=== PATIENT | male | born 1945 | race Caucasian/White ===

== ENCOUNTER 2022-03-05 15:45 | Inpatient (IN) | payer OTHER ==
[~2022-03-05] VITALS: Ht 165.1 cm; Wt 64.9 kg
[~2022-03-05 15:45] MED LIST: DEXTROSE 50% WATER 50ML SYRINGE IV ONE; EPINEPHRINE 0.1MG/ML (1:10,000) 10ML SYR ONE; ETOMIDATE 2MG/ML 10ML VIAL IV ONE; SODIUM CHLORIDE 0.9% 10ML VIAL ONE; SUCCINYLCHOLINE CHLORIDE 200MG/10ML IV ONE; VECURONIUM BROMIDE 10 MG/VIAL IV ONE
[2022-03-05] MEDS ORDERED: NITROGLYCERIN 50MG PREMIX 250 ML IV PRN ×2 (16:00→16:30)
[2022-03-05] MEDS ORDERED: CEFTRIAXONE 1 G PREMIX 50 ML IV ONE (16:15)
[2022-03-05] MEDS ORDERED: VANCOMYCIN 1G PREMIX 200 ML IV ONE (16:15)
[2022-03-05 16:31] LABS: BASOPHILS % 0.2 % (0.0-2.0); HEMATOCRIT. 45.8 % (42.0-52.0); HEMOGLOBIN. 14.3 g/dL (14.0-18.0); MEAN CORPUSCULAR HEMOGLOBIN 31.9 pg (28.0-32.0); MEAN PLATELET VOLUME 8.5 fl (7.4-10.4); MONOCYTES % 10.3 % (2.0-8.0); NEUTROPHILS % 77.5 % (40.0-76.0); PLATELET 193 x1000/uL (130-400); RED BLOOD CELL COUNT 4.49 mill/uL (4.7-6.1); RED CELL DISTRIBUTION WIDTH 16.1 % (11.6-14.6)
[2022-03-05 16:42] LABS: ETHANOL BLOOD < 10 mg/dL
[2022-03-05 16:49] LABS: CHLORIDE 104 mEq/L (98-107)
[2022-03-05] MEDS ORDERED: PROPOFOL 10MG/ML 100ML 100 ML IV ONE (17:00)
[2022-03-05] MEDS: PROPOFOL 10MG/ML 100ML 100 ML IV NR ×2 (17:09→19:27)
[2022-03-05] MEDS ORDERED: FENTANYL 2500MCG/250ML PMX 250 ML IV PRN (17:30)
[2022-03-05 18:13] LABS: BG BASE EXCESS 12.3 mmol/L (-2.0-2.0); BG CARBOXYHEMOGLOBIN 0.4 % (0.5-1.5); BG DEOXYHEMOGLOBIN 3.3 % (0.0-5.0); BG FRACTION INSPIRED OXYGEN 100; BG HCO3 ACT 38.6 mmol/L (22.0-26.0); BG METHEMOGLOBIN 0.2 % (0.0-1.5); BG OXYGEN SATURATION 96.7 % (92.0-98.5); BG OXYHEMOGLOBIN 96.1 % (94.0-97.0); BG PCO2 57.3 mmHg (35.0-45.0); BG PH 7.446 (7.350-7.450); BG PO2 76.4 mmHg (75.0-100.0); BG SAMPLE SITE RIGHT RADIAL; BG VENT MODE VENT - AC
[2022-03-05] MEDS ORDERED: GUAIFENESIN 200MG/10ML SUGAR FREE UDC PO PRN (18:15)
[2022-03-05] MEDS ORDERED: HYDROCODONE/ACETAMINOPHEN 5/325MG TABLET PO PRN (18:15)
[2022-03-05] MEDS ORDERED: CLONIDINE 0.1MG TABLET PO PRN (18:15)
[2022-03-05] MEDS ORDERED: ONDANSETRON HCL 4MG/2ML INJ IV PRN (18:15)
[2022-03-05] MEDS ORDERED: MAGNESIUM/ALUMINUM HYDROXIDE/SIMETHICONE 30ML UDC PO PRN (18:15)
[2022-03-05] MEDS ORDERED: ACETAMINOPHEN 650MG/20.3ML UDC GT PRN (18:15)
[2022-03-05] MEDS ORDERED: MIDAZOLAM 100MG/100ML PMX 100 ML IV PRN (18:30)
[2022-03-05] MEDS ORDERED: NOREPINEPHRINE 8MG/250ML PMX 250 ML IV NR ×2 (18:45→23:00)
[2022-03-05] MEDS ORDERED: NOREPINEPHRINE 8MG/250ML PMX 250 ML IV ONE (18:45)
[2022-03-05] MEDS ORDERED: ENOXAPARIN 40MG/0.4ML SYR SUBCUT SCH (19:00)
[2022-03-05] MEDS: ACETAMINOPHEN 650MG/20.3ML UDC GT PRN (23:45)
[2022-03-06] VITALS (49 sets, daily range): BP systolic 67–178; BP diastolic 45–118
[2022-03-06] MEDS: AZITHROMYCIN 500 MG in DEXT 5% WATER 250 ML IV SCH (01:58)
[2022-03-06 05:10] LABS: BASOPHILS % 0.5 % (0.0-2.0); EOSINOPHILS % 0.1 % (0.0-5.0); HEMATOCRIT. 38.9 % (42.0-52.0); HEMOGLOBIN. 12.5 g/dL (14.0-18.0); LYMPHOCYTES % 31.7 % (20.0-50.0); MEAN CORPUSCULAR HEMOGLOBIN 31.7 pg (28.0-32.0); MEAN CORPUSCULAR VOLUME 98.3 fL (80.0-94.0); MONOCYTES % 4.9 % (2.0-8.0); NEUTROPHILS % 62.8 % (40.0-76.0); PLATELET 179 x1000/uL (130-400); RED BLOOD CELL COUNT 3.95 mill/uL (4.7-6.1); RED CELL DISTRIBUTION WIDTH 15.1 % (11.6-14.6)
[2022-03-06 05:20] LABS: CHLORIDE 104 mEq/L (98-107)
[2022-03-06 05:48] LABS: PHOSPHORUS 0.5 mg/dL (2.5-4.9)
[2022-03-06 06:15] LABS: VITAMIN B12 SERUM > 2000.0 pg/mL (211-911)
[2022-03-06] MEDS: VANCOMYCIN 1GM PMX (XELLIA) 200 ML IV SCH ×2 (06:32→20:51)
[2022-03-06] MEDS: ACETAMINOPHEN 650MG/20.3ML UDC GT PRN (06:48)
[2022-03-06] MEDS ORDERED: MAGNESIUM 2 G PREMIX 50 ML IV NR (09:00)
[2022-03-06 09:38] LABS: BG BASE EXCESS 5.5 mmol/L (-2.0-2.0); BG CARBOXYHEMOGLOBIN 0.3 % (0.5-1.5); BG DEOXYHEMOGLOBIN 2.8 % (0.0-5.0); BG FRACTION INSPIRED OXYGEN 100; BG HCO3 ACT 30.6 mmol/L (22.0-26.0); BG METHEMOGLOBIN 0.3 % (0.0-1.5); BG OXYGEN SATURATION 97.2 % (92.0-98.5); BG OXYHEMOGLOBIN 96.6 % (94.0-97.0); BG PCO2 46.5 mmHg (35.0-45.0); BG PH 7.436 (7.350-7.450); BG PO2 87.3 mmHg (75.0-100.0); BG SAMPLE SITE LEFT RADIAL; BG TOTAL HEMOGLOBIN 13.3 g/dL (12.0-18.0); BG VENT MODE VENT - AC
[2022-03-06] MEDS ORDERED: POTASSIUM PHOS,M-BASIC-D-BASIC 30 MMOL in SODIUM CHLORIDE 0.9% 500 ML IV NR (10:00)
[2022-03-06] MEDS: FUROSEMIDE 20MG/2ML VIAL IVP SCH (12:00)
[2022-03-06] MEDS ORDERED: AMIODARONE HCL 900 MG in DEXT 5% WATER 482 ML IV PRN (12:00)
[2022-03-06] MEDS ORDERED: AMIODARONE HCL 150 MG in DEXT 5% WATER 100 ML IV SCH (12:00)
[2022-03-06] MEDS ORDERED: PHENYLEPHRINE 50 MG in DEXT 5% WATER 245 ML IV PRN (12:00)
[2022-03-06] MEDS ORDERED: IPRATROPIUM/ALBUTEROL 0.5-3(2.5)MG/3ML NEB HHN PRN (12:15)
[2022-03-06] MEDS: MIDODRINE HCL 5MG TABLET PO SCH ×2 (13:00→17:00)
[2022-03-06] MEDS ORDERED: NOREPINEPHRINE 32 MG in DEXT 5% WATER 218 ML IV PRN (15:15)
[2022-03-06] MEDS: ACETYLCYSTEINE 100MG/ML 10% VIAL 4ML INH SCH (16:03)
[2022-03-06] MEDS: IPRATROPIUM/ALBUTEROL 0.5-3(2.5)MG/3ML NEB HHN SCH ×2 (16:03→20:46)
[2022-03-06] MEDS: CEFTRIAXONE 1,000 MG in DEXTROSE 5% WATER 50 ML IV SCH (17:00)
[2022-03-06] MEDS: ENOXAPARIN 60MG/0.6ML SYR SUBCUT SCH (18:00)
[2022-03-06 19:16] LABS: CREATINE KINASE 62 IU/L (39-308)
[2022-03-06] MEDS: DEXT 5%/0.45% NACL 1000ML 1,000 ML IV SCH (20:50)
[2022-03-06 21:16] LABS: INR 1.5; PARTIAL THROMBOPLASTIN TIME 54.1 sec (23.4-31.0); PROTHROMBIN TIME 15.4 sec (9.6-11.0)
[2022-03-06] MEDS: PHENYLEPHRINE 100 MG in DEXT 5% WATER 240 ML IV PRN (22:24)
[2022-03-06] MEDS: PROPOFOL 10MG/ML 100ML 100 ML IV PRN (22:30)
[2022-03-06] MEDS: NOREPINEPHRINE 32 MG in DEXT 5% WATER 218 ML IV PRN (22:31)
[2022-03-06] MEDS ORDERED: DEXTROSE 50% WATER 50ML SYRINGE IV PRN (23:00)
[2022-03-07] VITALS (90 sets, daily range): BP systolic 81–153; BP diastolic 52–94
[2022-03-07] MEDS: IPRATROPIUM/ALBUTEROL 0.5-3(2.5)MG/3ML NEB HHN SCH ×6 (00:56→19:54)
[2022-03-07] MEDS: ACETYLCYSTEINE 100MG/ML 10% VIAL 4ML INH SCH ×3 (00:56→16:07)
[2022-03-07] MEDS: AZITHROMYCIN 500 MG in DEXT 5% WATER 250 ML IV SCH (03:13)
[2022-03-07 05:56] LABS: BASOPHILS % 0.3 % (0.0-2.0); EOSINOPHILS % 0.2 % (0.0-5.0); HEMOGLOBIN. 12.7 g/dL (14.0-18.0); LYMPHOCYTES % 7.7 % (20.0-50.0); MEAN CORPUSCULAR HEMOGLOBIN 32.5 pg (28.0-32.0); MEAN CORPUSCULAR VOLUME 97.6 fL (80.0-94.0); MEAN PLATELET VOLUME 8.3 fl (7.4-10.4); MONOCYTES % 2.9 % (2.0-8.0); NEUTROPHILS % 88.9 % (40.0-76.0); PLATELET 163 x1000/uL (130-400); RED CELL DISTRIBUTION WIDTH 15.6 % (11.6-14.6)
[2022-03-07] MEDS: INSULIN LISPRO 100 UNITS/ML SUBCUT SCH ×4 (06:00→18:00)
[2022-03-07] MEDS: ENOXAPARIN 60MG/0.6ML SYR SUBCUT SCH ×3 (06:00→19:04)
[2022-03-07] MEDS: BLOOD SUGAR DIAGNOSTIC STRIP TEST SCH ×4 (06:21→18:00)
[2022-03-07] MEDS: VANCOMYCIN 1GM PMX (XELLIA) 200 ML IV SCH (06:21)
[2022-03-07 08:57] LABS: BG BASE EXCESS 0.8 mmol/L (-2.0-2.0); BG CARBOXYHEMOGLOBIN 0.3 % (0.5-1.5); BG DEOXYHEMOGLOBIN 1.3 % (0.0-5.0); BG FRACTION INSPIRED OXYGEN 70; BG HCO3 ACT 27.1 mmol/L (22.0-26.0); BG METHEMOGLOBIN 0.2 % (0.0-1.5); BG OXYGEN SATURATION 98.7 % (92.0-98.5); BG OXYHEMOGLOBIN 98.2 % (94.0-97.0); BG PCO2 50.5 mmHg (35.0-45.0); BG PH 7.348 (7.350-7.450); BG PO2 140.8 mmHg (75.0-100.0); BG SAMPLE SITE RIGHT RADIAL; BG TOTAL HEMOGLOBIN 13.2 g/dL (12.0-18.0); BG VENT MODE VENT - AC
[2022-03-07] MEDS: MIDODRINE HCL 5MG TABLET PO SCH ×3 (09:59→17:00)
[2022-03-07] MEDS: FUROSEMIDE 20MG/2ML VIAL IVP SCH (09:59)
[2022-03-07] MEDS ORDERED: SODIUM BICARBONATE 4% (2.4MEQ) 5ML VIAL IV ONE (11:02)
[2022-03-07] MEDS: DEXT 5%/0.45% NACL 1000ML 1,000 ML IV SCH (11:48)
[2022-03-07] MEDS: PROPOFOL 10MG/ML 100ML 100 ML IV PRN (11:49)
[2022-03-07] MEDS: PHENYLEPHRINE 100 MG in DEXT 5% WATER 240 ML IV PRN (12:38)
[2022-03-07] MEDS: NOREPINEPHRINE 32 MG in DEXT 5% WATER 218 ML IV PRN (13:14)
[2022-03-07] MEDS: CEFTRIAXONE 1,000 MG in DEXTROSE 5% WATER 50 ML IV SCH (18:53)
[2022-03-07] MEDS: VANCOMYCIN 750MG PREMIX 150 ML IV SCH (19:25)
[2022-03-07] MEDS: FENTANYL 2500MCG/250ML PMX 250 ML IV PRN (20:42)
[2022-03-08] VITALS (72 sets, daily range): BP systolic 93–145; BP diastolic 51–93
[2022-03-08] MEDS: ACETYLCYSTEINE 100MG/ML 10% VIAL 4ML INH SCH ×3 (00:02→16:44)
[2022-03-08] MEDS: IPRATROPIUM/ALBUTEROL 0.5-3(2.5)MG/3ML NEB HHN SCH ×6 (00:02→20:34)
[2022-03-08] MEDS: PROPOFOL 10MG/ML 100ML 100 ML IV PRN ×3 (01:58→23:30)
[2022-03-08] MEDS: AZITHROMYCIN 500 MG in DEXT 5% WATER 250 ML IV SCH (02:00)
[2022-03-08 05:47] LABS: BASOPHILS % 0.1 % (0.0-2.0); EOSINOPHILS % 0.9 % (0.0-5.0); HEMATOCRIT. 33.8 % (42.0-52.0); HEMOGLOBIN. 11.1 g/dL (14.0-18.0); LYMPHOCYTES % 8.7 % (20.0-50.0); MEAN CORPUSCULAR HEMOGLOBIN 31.7 pg (28.0-32.0); MEAN CORPUSCULAR VOLUME 96.2 fL (80.0-94.0); MEAN PLATELET VOLUME 8.4 fl (7.4-10.4); MONOCYTES % 3.4 % (2.0-8.0); NEUTROPHILS % 86.9 % (40.0-76.0); PLATELET 144 x1000/uL (130-400); RED BLOOD CELL COUNT 3.51 mill/uL (4.7-6.1); RED CELL DISTRIBUTION WIDTH 15.4 % (11.6-14.6)
[2022-03-08 05:58] LABS: CHLORIDE 102 mEq/L (98-107)
[2022-03-08] MEDS: INSULIN LISPRO 100 UNITS/ML SUBCUT SCH ×4 (06:00→17:30)
[2022-03-08 06:03] LABS: PHOSPHORUS 2.6 mg/dL (2.5-4.9)
[2022-03-08] MEDS: VANCOMYCIN 750MG PREMIX 150 ML IV SCH ×2 (06:36→17:30)
[2022-03-08] MEDS: DEXT 5%/0.45% NACL 1000ML 1,000 ML IV SCH (06:37)
[2022-03-08] MEDS: BLOOD SUGAR DIAGNOSTIC STRIP TEST SCH ×4 (06:37→17:30)
[2022-03-08] MEDS: ENOXAPARIN 60MG/0.6ML SYR SUBCUT SCH ×2 (06:37→17:36)
[2022-03-08] MEDS: PHENYLEPHRINE 100 MG in DEXT 5% WATER 240 ML IV PRN ×2 (07:55→17:36)
[2022-03-08] MEDS: FUROSEMIDE 20MG/2ML VIAL IVP SCH (08:54)
[2022-03-08] MEDS: MIDODRINE HCL 5MG TABLET PO SCH ×3 (08:58→17:29)
[2022-03-08 09:46] LABS: BG CARBOXYHEMOGLOBIN 0.3 % (0.5-1.5); BG DEOXYHEMOGLOBIN 1.2 % (0.0-5.0); BG FRACTION INSPIRED OXYGEN 40; BG METHEMOGLOBIN 0.1 % (0.0-1.5); BG OXYGEN SATURATION 98.8 % (92.0-98.5); BG OXYHEMOGLOBIN 98.4 % (94.0-97.0); BG PCO2 34.4 mmHg (35.0-45.0); BG PH 7.496 (7.350-7.450); BG PO2 141.2 mmHg (75.0-100.0); BG SAMPLE SITE RIGHT RADIAL; BG TOTAL HEMOGLOBIN 11.8 g/dL (12.0-18.0); BG VENT MODE VENT - AC
[2022-03-08] MEDS: CEFTRIAXONE 1,000 MG in DEXTROSE 5% WATER 50 ML IV SCH (16:41)
[2022-03-08] MEDS: FENTANYL 2500MCG/250ML PMX 250 ML IV PRN (20:14)
[2022-03-09] VITALS (107 sets, daily range): BP systolic 80–169; BP diastolic 37–101
[2022-03-09] MEDS: ACETYLCYSTEINE 100MG/ML 10% VIAL 4ML INH SCH ×4 (00:29→23:32)
[2022-03-09] MEDS: IPRATROPIUM/ALBUTEROL 0.5-3(2.5)MG/3ML NEB HHN SCH ×7 (00:29→23:32)
[2022-03-09] MEDS: PHENYLEPHRINE 100 MG in DEXT 5% WATER 240 ML IV PRN (01:20)
[2022-03-09] MEDS: AZITHROMYCIN 500 MG in DEXT 5% WATER 250 ML IV SCH (02:57)
[2022-03-09] MEDS: DEXT 5%/0.45% NACL 1000ML 1,000 ML IV SCH (03:29)
[2022-03-09 04:08] LABS: CHLORIDE 102 mEq/L (98-107)
[2022-03-09] MEDS: INSULIN LISPRO 100 UNITS/ML SUBCUT SCH ×4 (06:00→17:25)
[2022-03-09] MEDS: VANCOMYCIN 750MG PREMIX 150 ML IV SCH ×2 (06:53→17:26)
[2022-03-09] MEDS: BLOOD SUGAR DIAGNOSTIC STRIP TEST SCH ×4 (06:55→17:02)
[2022-03-09] MEDS: ENOXAPARIN 60MG/0.6ML SYR SUBCUT SCH ×2 (06:55→17:03)
[2022-03-09 08:15] LABS: BG BASE EXCESS 1.2 mmol/L (-2.0-2.0); BG CARBOXYHEMOGLOBIN 0.3 % (0.5-1.5); BG DEOXYHEMOGLOBIN 1.5 % (0.0-5.0); BG FRACTION INSPIRED OXYGEN 40; BG HCO3 ACT 25.1 mmol/L (22.0-26.0); BG METHEMOGLOBIN 0.3 % (0.0-1.5); BG OXYGEN SATURATION 98.5 % (92.0-98.5); BG OXYHEMOGLOBIN 97.9 % (94.0-97.0); BG PH 7.449 (7.350-7.450); BG PO2 131.7 mmHg (75.0-100.0); BG SAMPLE SITE RIGHT RADIAL; BG TOTAL HEMOGLOBIN 10.7 g/dL (12.0-18.0); BG VENT MODE VENT - AC
[2022-03-09] MEDS: MIDODRINE HCL 5MG TABLET PO SCH ×3 (08:51→17:02)
[2022-03-09] MEDS: FUROSEMIDE 20MG/2ML VIAL IVP SCH (08:52)
[2022-03-09] MEDS ORDERED: POTASSIUM CHLORIDE INJ 40 MEQ in DEXT 5% WATER 500 ML IV ONE (09:00)
[2022-03-09] MEDS ORDERED: NALOXONE HCL 0.4MG/ML VIAL IV PRN (12:45)
[2022-03-09] MEDS: PROPOFOL 10MG/ML 100ML 100 ML IV PRN (14:08)
[2022-03-09] MEDS: CEFTRIAXONE 1,000 MG in DEXTROSE 5% WATER 50 ML IV SCH (17:01)
[2022-03-09] MEDS: FENTANYL 2500MCG/250ML PMX 250 ML IV PRN (19:01)
[2022-03-10] VITALS (92 sets, daily range): BP systolic 40–158; BP diastolic 20–94
[2022-03-10] MEDS: DEXT 5%/0.45% NACL 1000ML 1,000 ML IV SCH ×2 (00:42→20:24)
[2022-03-10] MEDS: BLOOD SUGAR DIAGNOSTIC STRIP TEST SCH ×4 (00:42→17:04)
[2022-03-10] MEDS: PROPOFOL 10MG/ML 100ML 100 ML IV PRN ×2 (00:48→13:21)
[2022-03-10] MEDS: AZITHROMYCIN 500 MG in DEXT 5% WATER 250 ML IV SCH (02:33)
[2022-03-10] MEDS: IPRATROPIUM/ALBUTEROL 0.5-3(2.5)MG/3ML NEB HHN SCH ×5 (03:33→20:25)
[2022-03-10 05:47] LABS: BASOPHILS % 0.2 % (0.0-2.0); EOSINOPHILS % 0.9 % (0.0-5.0); HEMOGLOBIN. 10.7 g/dL (14.0-18.0); LYMPHOCYTES % 15.1 % (20.0-50.0); MEAN CORPUSCULAR HEMOGLOBIN 32.2 pg (28.0-32.0); MEAN CORPUSCULAR VOLUME 96.2 fL (80.0-94.0); MONOCYTES % 9.9 % (2.0-8.0); NEUTROPHILS % 73.9 % (40.0-76.0); PLATELET 123 x1000/uL (130-400); RED BLOOD CELL COUNT 3.32 mill/uL (4.7-6.1); RED CELL DISTRIBUTION WIDTH 15.4 % (11.6-14.6)
[2022-03-10 05:57] LABS: CHLORIDE 103 mEq/L (98-107)
[2022-03-10] MEDS: INSULIN LISPRO 100 UNITS/ML SUBCUT SCH ×4 (06:00→17:05)
[2022-03-10 06:02] LABS: PHOSPHORUS 3.3 mg/dL (2.5-4.9)
[2022-03-10] MEDS: ACETYLCYSTEINE 100MG/ML 10% VIAL 4ML INH SCH ×2 (07:59→16:16)
[2022-03-10 09:22] LABS: BG BASE EXCESS 2.1 mmol/L (-2.0-2.0); BG CARBOXYHEMOGLOBIN 0.2 % (0.5-1.5); BG DEOXYHEMOGLOBIN 1.5 % (0.0-5.0); BG FRACTION INSPIRED OXYGEN 40; BG HCO3 ACT 24.9 mmol/L (22.0-26.0); BG METHEMOGLOBIN 0.3 % (0.0-1.5); BG OXYGEN SATURATION 98.5 % (92.0-98.5); BG PCO2 32.7 mmHg (35.0-45.0); BG PO2 134.3 mmHg (75.0-100.0); BG SAMPLE SITE RIGHT RADIAL; BG TOTAL HEMOGLOBIN 11.2 g/dL (12.0-18.0); BG VENT MODE VENT - AC
[2022-03-10] MEDS: VANCOMYCIN 750MG PREMIX 150 ML IV SCH (09:31)
[2022-03-10] MEDS: ENOXAPARIN 60MG/0.6ML SYR SUBCUT SCH ×2 (09:33→17:05)
[2022-03-10] MEDS: MIDODRINE HCL 5MG TABLET PO SCH ×3 (09:53→16:59)
[2022-03-10] MEDS: FUROSEMIDE 20MG/2ML VIAL IVP SCH (09:53)
[2022-03-10] MEDS: NOREPINEPHRINE 32 MG in DEXT 5% WATER 218 ML IV PRN (09:55)
[2022-03-10] MEDS: PHENYLEPHRINE 100 MG in DEXT 5% WATER 240 ML IV PRN (09:55)
[2022-03-10] MEDS: CEFTRIAXONE 1,000 MG in DEXTROSE 5% WATER 50 ML IV SCH (16:58)
[2022-03-10] MEDS: FENTANYL 2500MCG/250ML PMX 250 ML IV PRN (21:34)
[2022-03-11] VITALS (100 sets, daily range): BP systolic 85–174; BP diastolic 48–128
[2022-03-11] MEDS: IPRATROPIUM/ALBUTEROL 0.5-3(2.5)MG/3ML NEB HHN SCH ×6 (00:23→21:06)
[2022-03-11] MEDS: ACETYLCYSTEINE 100MG/ML 10% VIAL 4ML INH SCH ×3 (00:24→21:39)
[2022-03-11] MEDS: PROPOFOL 10MG/ML 100ML 100 ML IV PRN ×3 (01:38→21:01)
[2022-03-11 05:33] LABS: CHLORIDE 104 mEq/L (98-107)
[2022-03-11] MEDS: BLOOD SUGAR DIAGNOSTIC STRIP TEST SCH ×5 (06:00→23:36)
[2022-03-11] MEDS: INSULIN LISPRO 100 UNITS/ML SUBCUT SCH ×5 (06:00→23:36)
[2022-03-11 09:03] LABS: BG BASE EXCESS 4.2 mmol/L (-2.0-2.0); BG CARBOXYHEMOGLOBIN 0.3 % (0.5-1.5); BG DEOXYHEMOGLOBIN 2.7 % (0.0-5.0); BG FRACTION INSPIRED OXYGEN 35; BG METHEMOGLOBIN 0.2 % (0.0-1.5); BG OXYGEN SATURATION 97.3 % (92.0-98.5); BG OXYHEMOGLOBIN 96.8 % (94.0-97.0); BG PCO2 44.3 mmHg (35.0-45.0); BG PH 7.434 (7.350-7.450); BG PO2 96.5 mmHg (75.0-100.0); BG SAMPLE SITE RIGHT RADIAL; BG VENT MODE VENT - AC
[2022-03-11 09:05] LABS: BASOPHILS % 0.2 % (0.0-2.0); EOSINOPHILS % 0.8 % (0.0-5.0); HEMOGLOBIN. 10.5 g/dL (14.0-18.0); MEAN CORPUSCULAR HEMOGLOBIN 31.7 pg (28.0-32.0); MEAN CORPUSCULAR VOLUME 96.7 fL (80.0-94.0); MEAN PLATELET VOLUME 8.6 fl (7.4-10.4); MONOCYTES % 6.3 % (2.0-8.0); NEUTROPHILS % 83.7 % (40.0-76.0); RED CELL DISTRIBUTION WIDTH 15.4 % (11.6-14.6)
[2022-03-11] MEDS: FUROSEMIDE 20MG/2ML VIAL IVP SCH (09:16)
[2022-03-11] MEDS: MIDODRINE HCL 5MG TABLET PO SCH ×3 (09:16→17:19)
[2022-03-11] MEDS: ENOXAPARIN 60MG/0.6ML SYR SUBCUT SCH ×2 (09:17→17:19)
[2022-03-11 09:55] LABS: PLATELET 183 x1000/uL (130-400)
[2022-03-11] MEDS: PHENYLEPHRINE 100 MG in DEXT 5% WATER 240 ML IV PRN (10:41)
[2022-03-11] MEDS ORDERED: AMIODARONE HCL 50MG/ML 3ML VIAL IV ONE (13:30)
[2022-03-11] MEDS ORDERED: CEFTRIAXONE 1 G PREMIX 50 ML IV SCH (13:30)
[2022-03-11] MEDS: DEXT 5%/0.45% NACL 1000ML 1,000 ML IV SCH (14:44)
[2022-03-11] MEDS ORDERED: AMIODARONE HCL 150 MG in DEXT 5% WATER 100 ML IV NR (15:00)
[2022-03-11] MEDS ORDERED: NALOXONE HCL 0.4MG/ML VIAL IV PRN (16:15)
[2022-03-11] MEDS ORDERED: CEFTRIAXONE 1,000 MG in DEXTROSE 5% WATER 50 ML IV SCH (17:00)
[2022-03-11] MEDS: AMIODARONE HCL 200 MG TABLET PO SCH (20:13)
[2022-03-12] VITALS (95 sets, daily range): BP systolic 85–173; BP diastolic 47–98
[2022-03-12] MEDS: IPRATROPIUM/ALBUTEROL 0.5-3(2.5)MG/3ML NEB HHN SCH ×6 (00:26→20:10)
[2022-03-12] MEDS: ENOXAPARIN 60MG/0.6ML SYR SUBCUT SCH ×2 (05:30→17:58)
[2022-03-12] MEDS: LACTULOSE 20G/30ML UDC PO PRN (05:30)
[2022-03-12] MEDS: BLOOD SUGAR DIAGNOSTIC STRIP TEST SCH ×3 (05:30→17:40)
[2022-03-12] MEDS: INSULIN LISPRO 100 UNITS/ML SUBCUT SCH ×3 (05:30→17:40)
[2022-03-12] MEDS: PROPOFOL 10MG/ML 100ML 100 ML IV PRN ×2 (05:33→15:10)
[2022-03-12 05:50] LABS: BASOPHILS % 0.4 % (0.0-2.0); EOSINOPHILS % 1.1 % (0.0-5.0); HEMATOCRIT. 29.8 % (42.0-52.0); HEMOGLOBIN. 9.9 g/dL (14.0-18.0); LYMPHOCYTES % 18.2 % (20.0-50.0); MEAN CORPUSCULAR HEMOGLOBIN 32.1 pg (28.0-32.0); MEAN PLATELET VOLUME 8.5 fl (7.4-10.4); MONOCYTES % 6.6 % (2.0-8.0); NEUTROPHILS % 73.7 % (40.0-76.0); PLATELET 228 x1000/uL (130-400); RED BLOOD CELL COUNT 3.07 mill/uL (4.7-6.1); RED CELL DISTRIBUTION WIDTH 15.1 % (11.6-14.6)
[2022-03-12 06:14] LABS: CHLORIDE 105 mEq/L (98-107)
[2022-03-12 06:21] LABS: PHOSPHORUS 2.6 mg/dL (2.5-4.9)
[2022-03-12] MEDS: FUROSEMIDE 20MG/2ML VIAL IVP SCH (09:00)
[2022-03-12 09:31] LABS: BG CARBOXYHEMOGLOBIN 0.1 % (0.5-1.5); BG DEOXYHEMOGLOBIN 1.9 % (0.0-5.0); BG FRACTION INSPIRED OXYGEN 35; BG HCO3 ACT 27.8 mmol/L (22.0-26.0); BG METHEMOGLOBIN 0.2 % (0.0-1.5); BG OXYGEN SATURATION 98.1 % (92.0-98.5); BG OXYHEMOGLOBIN 97.8 % (94.0-97.0); BG PCO2 38.5 mmHg (35.0-45.0); BG PH 7.476 (7.350-7.450); BG PO2 110.9 mmHg (75.0-100.0); BG SAMPLE SITE RIGHT RADIAL; BG TOTAL HEMOGLOBIN 10.7 g/dL (12.0-18.0); BG VENT MODE VENT - AC
[2022-03-12] MEDS: AMIODARONE HCL 200 MG TABLET PO SCH ×2 (09:35→21:00)
[2022-03-12] MEDS: MIDODRINE HCL 5MG TABLET PO SCH ×3 (09:35→17:57)
[2022-03-12] MEDS: DEXT 5%/0.45% NACL 1000ML 1,000 ML IV SCH (11:15)
[2022-03-12] MEDS ORDERED: POTASSIUM CHLORIDE INJ 40 MEQ in DEXT 5% WATER 250 ML IV ONE (11:30)
[2022-03-12] MEDS: KCL 20MEQ/100ML X 2 FOR TOTAL KCL 40MEQ/200ML IV SCH ×2 (12:24→15:09)
[2022-03-12] MEDS ORDERED: CEFTRIAXONE 1 G PREMIX 50 ML IV SCH (17:45)
[2022-03-12] MEDS: CEFTRIAXONE 1,000 MG in DEXTROSE 5% WATER 50 ML IV SCH (19:49)
[2022-03-13] VITALS (95 sets, daily range): BP systolic 76–182; BP diastolic 32–110
[2022-03-13] MEDS: IPRATROPIUM/ALBUTEROL 0.5-3(2.5)MG/3ML NEB HHN SCH ×6 (00:10→20:53)
[2022-03-13] MEDS: BLOOD SUGAR DIAGNOSTIC STRIP TEST SCH ×4 (00:46→17:52)
[2022-03-13] MEDS ORDERED: FENTANYL 2500MCG/250ML PMX 250 ML IV PRN (01:00)
[2022-03-13] MEDS: LACTULOSE 20G/30ML UDC PO PRN (02:44)
[2022-03-13] MEDS: PROPOFOL 10MG/ML 100ML 100 ML IV PRN ×2 (02:46→18:01)
[2022-03-13 05:45] LABS: BASOPHILS % 0.2 % (0.0-2.0); EOSINOPHILS % 0.6 % (0.0-5.0); HEMATOCRIT. 30.5 % (42.0-52.0); HEMOGLOBIN. 10.1 g/dL (14.0-18.0); LYMPHOCYTES % 10.8 % (20.0-50.0); MEAN CORPUSCULAR HEMOGLOBIN 32.4 pg (28.0-32.0); MEAN CORPUSCULAR VOLUME 98.1 fL (80.0-94.0); MEAN PLATELET VOLUME 8.5 fl (7.4-10.4); MONOCYTES % 4.2 % (2.0-8.0); NEUTROPHILS % 84.2 % (40.0-76.0); PLATELET 296 x1000/uL (130-400); RED BLOOD CELL COUNT 3.11 mill/uL (4.7-6.1); RED CELL DISTRIBUTION WIDTH 15.2 % (11.6-14.6)
[2022-03-13 05:50] LABS: CHLORIDE 107 mEq/L (98-107)
[2022-03-13] MEDS: INSULIN LISPRO 100 UNITS/ML SUBCUT SCH ×4 (06:00→17:52)
[2022-03-13] MEDS: ENOXAPARIN 60MG/0.6ML SYR SUBCUT SCH ×2 (06:22→18:01)
[2022-03-13] MEDS: DEXT 5%/0.45% NACL 1000ML 1,000 ML IV SCH (06:23)
[2022-03-13 08:56] LABS: BG BASE EXCESS 5.4 mmol/L (-2.0-2.0); BG CARBOXYHEMOGLOBIN 0.3 % (0.5-1.5); BG DEOXYHEMOGLOBIN 3.8 % (0.0-5.0); BG FRACTION INSPIRED OXYGEN 30; BG HCO3 ACT 32.9 mmol/L (22.0-26.0); BG METHEMOGLOBIN 0.2 % (0.0-1.5); BG OXYGEN SATURATION 96.2 % (92.0-98.5); BG OXYHEMOGLOBIN 95.7 % (94.0-97.0); BG PCO2 64.2 mmHg (35.0-45.0); BG PH 7.327 (7.350-7.450); BG PO2 96.4 mmHg (75.0-100.0); BG TOTAL HEMOGLOBIN 10.6 g/dL (12.0-18.0); BG VENT MODE VENT - SIMV
[2022-03-13] MEDS ORDERED: POTASSIUM CHLORIDE INJ 40 MEQ in DEXT 5% WATER 250 ML IV ONE (09:00)
[2022-03-13 09:12] LABS: BG SAMPLE SITE RIGHT RADIAL
[2022-03-13] MEDS: MIDODRINE HCL 5MG TABLET PO SCH ×3 (09:24→17:58)
[2022-03-13] MEDS: FUROSEMIDE 20MG/2ML VIAL IVP SCH (09:24)
[2022-03-13] MEDS: AMIODARONE HCL 200 MG TABLET PO SCH ×2 (09:24→21:00)
[2022-03-13] MEDS: KCL 20MEQ/100ML PREMIX 100 ML IV SCH ×2 (09:30→12:00)
[2022-03-13 14:30] LABS: BG CARBOXYHEMOGLOBIN 0.3 % (0.5-1.5); BG DEOXYHEMOGLOBIN 2.7 % (0.0-5.0); BG FRACTION INSPIRED OXYGEN 30; BG HCO3 ACT 30.8 mmol/L (22.0-26.0); BG METHEMOGLOBIN 0.1 % (0.0-1.5); BG OXYGEN SATURATION 97.3 % (92.0-98.5); BG OXYHEMOGLOBIN 96.9 % (94.0-97.0); BG PCO2 45.6 mmHg (35.0-45.0); BG PH 7.448 (7.350-7.450); BG PO2 95.6 mmHg (75.0-100.0); BG SAMPLE SITE RIGHT RADIAL; BG TOTAL HEMOGLOBIN 12.1 g/dL (12.0-18.0); BG VENT MODE VENT - CPAP
[2022-03-13] MEDS ORDERED: PROPOFOL 10MG/ML 100ML 100 ML IV PRN (18:00)
[2022-03-13] MEDS: CEFTRIAXONE 1,000 MG in DEXTROSE 5% WATER 50 ML IV SCH (18:02)
[2022-03-14] VITALS (50 sets, daily range): BP systolic 103–156; BP diastolic 52–93
[2022-03-14] MEDS: IPRATROPIUM/ALBUTEROL 0.5-3(2.5)MG/3ML NEB HHN SCH ×7 (00:47→20:03)
[2022-03-14] MEDS: PROPOFOL 10MG/ML 100ML 100 ML IV PRN (01:12)
[2022-03-14] MEDS: DEXT 5%/0.45% NACL 1000ML 1,000 ML IV SCH ×2 (02:44→23:18)
[2022-03-14] MEDS: INSULIN LISPRO 100 UNITS/ML SUBCUT SCH ×5 (06:00→23:14)
[2022-03-14] MEDS: ENOXAPARIN 60MG/0.6ML SYR SUBCUT SCH ×2 (06:00→18:16)
[2022-03-14] MEDS: BLOOD SUGAR DIAGNOSTIC STRIP TEST SCH ×5 (06:00→23:14)
[2022-03-14 06:11] LABS: BASOPHILS % 0.5 % (0.0-2.0); EOSINOPHILS % 1.6 % (0.0-5.0); HEMATOCRIT. 32.2 % (42.0-52.0); HEMOGLOBIN. 10.8 g/dL (14.0-18.0); LYMPHOCYTES % 25.3 % (20.0-50.0); MEAN CORPUSCULAR HEMOGLOBIN 32.5 pg (28.0-32.0); MEAN CORPUSCULAR VOLUME 96.7 fL (80.0-94.0); MEAN PLATELET VOLUME 7.9 fl (7.4-10.4); MONOCYTES % 7.8 % (2.0-8.0); NEUTROPHILS % 64.8 % (40.0-76.0); PLATELET 404 x1000/uL (130-400); RED BLOOD CELL COUNT 3.33 mill/uL (4.7-6.1); RED CELL DISTRIBUTION WIDTH 14.8 % (11.6-14.6)
[2022-03-14 06:26] LABS: CHLORIDE 106 mEq/L (98-107)
[2022-03-14 08:50] LABS: BG BASE EXCESS 5.1 mmol/L (-2.0-2.0); BG CARBOXYHEMOGLOBIN 0.3 % (0.5-1.5); BG DEOXYHEMOGLOBIN 2.7 % (0.0-5.0); BG FRACTION INSPIRED OXYGEN 30; BG HCO3 ACT 29.8 mmol/L (22.0-26.0); BG METHEMOGLOBIN 0.2 % (0.0-1.5); BG OXYGEN SATURATION 97.3 % (92.0-98.5); BG OXYHEMOGLOBIN 96.8 % (94.0-97.0); BG PCO2 44.8 mmHg (35.0-45.0); BG PH 7.441 (7.350-7.450); BG PO2 97.9 mmHg (75.0-100.0); BG SAMPLE SITE LEFT RADIAL; BG TOTAL HEMOGLOBIN 10.8 g/dL (12.0-18.0); BG VENT MODE VENT - AC
[2022-03-14] MEDS: MIDODRINE HCL 5MG TABLET PO SCH ×3 (09:46→17:57)
[2022-03-14] MEDS: FUROSEMIDE 20MG/2ML VIAL IVP SCH (09:47)
[2022-03-14] MEDS: AMIODARONE HCL 200 MG TABLET PO SCH ×2 (09:47→20:01)
[2022-03-14] MEDS ORDERED: SORBITOL 70% SOLN 30ML PO NR (11:15)
[2022-03-14 11:57] LABS: BG BASE EXCESS 6.6 mmol/L (-2.0-2.0); BG CARBOXYHEMOGLOBIN 0.3 % (0.5-1.5); BG FRACTION INSPIRED OXYGEN 30; BG HCO3 ACT 32.6 mmol/L (22.0-26.0); BG METHEMOGLOBIN 0.2 % (0.0-1.5); BG OXYHEMOGLOBIN 95.5 % (94.0-97.0); BG PCO2 53.2 mmHg (35.0-45.0); BG PH 7.405 (7.350-7.450); BG PO2 87.3 mmHg (75.0-100.0); BG SAMPLE SITE RIGHT RADIAL; BG TOTAL HEMOGLOBIN 12.2 g/dL (12.0-18.0); BG VENT MODE VENT - CPAP
[2022-03-14] MEDS: MORPHINE SULFATE 2 MG/ML CPJ (NOT FOR IM USE) IV PRN ×2 (14:41→20:00)
[2022-03-14] MEDS: LACTULOSE 20G/30ML UDC PO PRN (19:58)
[2022-03-14] MEDS: CEFTRIAXONE 1,000 MG in DEXTROSE 5% WATER 50 ML IV SCH (19:58)
[2022-03-14] MEDS: PHENYLEPHRINE 100 MG in DEXT 5% WATER 240 ML IV PRN (21:45)
[2022-03-15] VITALS (88 sets, daily range): BP systolic 81–168; BP diastolic 45–102
[2022-03-15] MEDS: IPRATROPIUM/ALBUTEROL 0.5-3(2.5)MG/3ML NEB HHN SCH ×5 (01:38→16:40)
[2022-03-15] MEDS: BLOOD SUGAR DIAGNOSTIC STRIP TEST SCH ×2 (05:42→12:37)
[2022-03-15] MEDS: INSULIN LISPRO 100 UNITS/ML SUBCUT SCH ×2 (05:51→12:00)
[2022-03-15] MEDS: ENOXAPARIN 60MG/0.6ML SYR SUBCUT SCH ×2 (05:52→18:58)
[2022-03-15 06:31] LABS: BASOPHILS % 0.5 % (0.0-2.0); EOSINOPHILS % 0.2 % (0.0-5.0); HEMATOCRIT. 31.4 % (42.0-52.0); HEMOGLOBIN. 10.4 g/dL (14.0-18.0); LYMPHOCYTES % 12.7 % (20.0-50.0); MEAN CORPUSCULAR HEMOGLOBIN 31.7 pg (28.0-32.0); MEAN CORPUSCULAR VOLUME 95.9 fL (80.0-94.0); MONOCYTES % 6.1 % (2.0-8.0); NEUTROPHILS % 80.5 % (40.0-76.0); PLATELET 432 x1000/uL (130-400); RED BLOOD CELL COUNT 3.27 mill/uL (4.7-6.1); RED CELL DISTRIBUTION WIDTH 14.4 % (11.6-14.6)
[2022-03-15 06:44] LABS: CHLORIDE 107 mEq/L (98-107)
[2022-03-15 06:51] LABS: PHOSPHORUS 2.5 mg/dL (2.5-4.9)
[2022-03-15] MEDS ORDERED: FENTANYL 2500MCG/250ML PMX 250 ML IV PRN (08:04)
[2022-03-15] MEDS: HYDRALAZINE 20MG/ML VIAL IV PRN (08:05)
[2022-03-15] MEDS: MORPHINE SULFATE 2 MG/ML CPJ (NOT FOR IM USE) IV PRN (08:15)
[2022-03-15] MEDS: AMIODARONE HCL 200 MG TABLET PO SCH ×2 (08:28→20:10)
[2022-03-15] MEDS: FUROSEMIDE 20MG/2ML VIAL IVP SCH (08:28)
[2022-03-15] MEDS: MIDODRINE HCL 5MG TABLET PO SCH ×3 (08:29→16:56)
[2022-03-15] MEDS ORDERED: POTASSIUM CHLORIDE INJ 40 MEQ in DEXT 5% WATER 250 ML IV ONE (10:45)
[2022-03-15] MEDS: KCL 20MEQ/100ML X 2 FOR TOTAL KCL 40MEQ/200ML IV SCH ×2 (12:23→13:55)
[2022-03-15] MEDS: DEXT 5%/0.45% NACL 1000ML 1,000 ML IV SCH (20:09)
[2022-03-15] MEDS: CEFTRIAXONE 1,000 MG in DEXTROSE 5% WATER 50 ML IV SCH (20:09)
[2022-03-16] VITALS (49 sets, daily range): BP systolic 96–163; BP diastolic 50–118
[2022-03-16] MEDS: IPRATROPIUM/ALBUTEROL 0.5-3(2.5)MG/3ML NEB HHN SCH ×6 (00:13→20:24)
[2022-03-16 05:38] LABS: MEAN CORPUSCULAR HEMOGLOBIN 31.9 pg (28.0-32.0); MEAN CORPUSCULAR VOLUME 95.5 fL (80.0-94.0); MEAN PLATELET VOLUME 7.9 fl (7.4-10.4); PLATELET 484 x1000/uL (130-400); RED BLOOD CELL COUNT 3.46 mill/uL (4.7-6.1); RED CELL DISTRIBUTION WIDTH 14.6 % (11.6-14.6)
[2022-03-16 05:59] LABS: CHLORIDE 108 mEq/L (98-107)
[2022-03-16] MEDS: ENOXAPARIN 60MG/0.6ML SYR SUBCUT SCH ×2 (06:13→18:45)
[2022-03-16] MEDS ORDERED: POTASSIUM CHLORIDE INJ 40 MEQ in DEXT 5% WATER 250 ML IV ONE (07:45)
[2022-03-16 07:47] LABS: PLATELET ESTIMATE SLIGHTLY INCREASED
[2022-03-16] MEDS: AMIODARONE HCL 200 MG TABLET PO SCH ×2 (08:40→20:17)
[2022-03-16] MEDS: FUROSEMIDE 20MG/2ML VIAL IVP SCH (08:40)
[2022-03-16] MEDS: KCL 20MEQ/100ML X 2 FOR TOTAL KCL 40MEQ/200ML IV SCH ×2 (08:41→10:46)
[2022-03-16] MEDS: MIDODRINE HCL 5MG TABLET PO SCH ×3 (08:41→18:45)
[2022-03-16] MEDS: LACTULOSE 20G/30ML UDC PO PRN (13:17)
[2022-03-16] MEDS: DEXT 5%/0.45% NACL 1000ML 1,000 ML IV SCH (15:48)
[2022-03-16] MEDS: SODIUM CHLORIDE 3% FOR INH 4ML UD NEB INH SCH ×2 (16:39→18:00)
[2022-03-16] MEDS: ACETYLCYSTEINE 100MG/ML 10% VIAL 4ML INH SCH (16:39)
[2022-03-16] MEDS: HYDRALAZINE 20MG/ML VIAL IV PRN (21:42)
[2022-03-16] MEDS ORDERED: LORAZEPAM 2MG/ML CPJ IV NR (23:00)
[2022-03-17] VITALS (26 sets, daily range): BP systolic 91–131; BP diastolic 51–89
[2022-03-17] MEDS: IPRATROPIUM/ALBUTEROL 0.5-3(2.5)MG/3ML NEB HHN SCH ×5 (00:13→16:57)
[2022-03-17] MEDS: ACETYLCYSTEINE 100MG/ML 10% VIAL 4ML INH SCH ×3 (00:13→16:57)
[2022-03-17] MEDS: ENOXAPARIN 60MG/0.6ML SYR SUBCUT SCH ×2 (05:45→18:00)
[2022-03-17] MEDS: FUROSEMIDE 20MG/2ML VIAL IVP SCH (08:20)
[2022-03-17] MEDS: MIDODRINE HCL 5MG TABLET PO SCH ×3 (08:20→18:00)
[2022-03-17] MEDS: AMIODARONE HCL 200 MG TABLET PO SCH (08:20)
[2022-03-17] MEDS ORDERED: BISACODYL 10MG SUPP PR PRN (08:45)
[2022-03-17] MEDS ORDERED: LORAZEPAM 2MG/ML CPJ IV PRN (08:45)
[2022-03-17 09:07] LABS: BASOPHILS % 0.6 % (0.0-2.0); EOSINOPHILS % 0.2 % (0.0-5.0); HEMATOCRIT. 31.3 % (42.0-52.0); HEMOGLOBIN. 10.3 g/dL (14.0-18.0); LYMPHOCYTES % 8.2 % (20.0-50.0); MEAN CORPUSCULAR HEMOGLOBIN 32.2 pg (28.0-32.0); MEAN CORPUSCULAR VOLUME 97.4 fL (80.0-94.0); MEAN PLATELET VOLUME 8.3 fl (7.4-10.4); MONOCYTES % 6.6 % (2.0-8.0); NEUTROPHILS % 84.4 % (40.0-76.0); PLATELET 469 x1000/uL (130-400); RED BLOOD CELL COUNT 3.21 mill/uL (4.7-6.1); RED CELL DISTRIBUTION WIDTH 14.7 % (11.6-14.6)
[2022-03-17] MEDS: SODIUM CHLORIDE 3% FOR INH 4ML UD NEB INH SCH ×3 (09:07→16:57)
[2022-03-17 09:20] LABS: CHLORIDE 111 mEq/L (98-107)
[2022-03-17 10:19] LABS: CLARITY URINE CLEAR (CLEAR); COLOR URINE YELLOW (YELLOW); KETONES URINE NEGATIVE (NEGATIVE); LEUKOCYTE ESTERASE URINE NEGATIVE (NEGATIVE); NITRITE URINE NEGATIVE (NEGATIVE); OCCULT BLOOD URINE NEGATIVE (NEGATIVE); PROTEIN URINE NEGATIVE (NEGATIVE); SPECIFIC GRAVITY URINE 1.007 (1.005-1.030); UROBILINOGEN URINE 0.2 E.U./dL (0.2-1.0)
[2022-03-17] MEDS: DEXT 5%/0.45% NACL 1000ML 1,000 ML IV SCH (11:18)
== END 2022-03-17 18:45 | disposition short-term general hospital (02) | DRG 870 ==
LOC: ER 15:45 → MICUSO 17:55 → EDBEDREQTM 17:59 → EDBEDREQ 17:59 → SUPCPDRO 18:10 → EDBEDREQTM 20:27 → EDBEDREQ 20:27 → CVICU 03-06 06:20
PROVIDERS: ADMIT Internal Medicine; ATTEND Internal Medicine
PROC: 5A1955Z Respiratory Ventilation, Greater than 96 Consecutive Hours (ICD-10-PCS; principal; 2022-03-05)
PROC: 5A09357 Assistance with Respiratory Ventilation, Less than 24 Consecutive Hours, Continuous Positive Airway Pressure (ICD-10-PCS; 2022-03-05)
PROC: 0BH17EZ Insertion of Endotracheal Airway into Trachea, Via Natural or Artificial Opening (ICD-10-PCS; 2022-03-05)
PROC: 02HV33Z Insertion of Infusion Device into Superior Vena Cava, Percutaneous Approach (ICD-10-PCS; 2022-03-06)
PROC: B548ZZA Ultrasonography of Superior Vena Cava, Guidance (ICD-10-PCS; 2022-03-06)
PROC: 5A09457 Assistance with Respiratory Ventilation, 24-96 Consecutive Hours, Continuous Positive Airway Pressure (ICD-10-PCS; 2022-03-14)
DX: A41.59 Other Gram-negative sepsis (principal); G92.8 Other toxic encephalopathy; I50.33 Acute on chronic diastolic (congestive) heart failure; J96.21 Acute and chronic respiratory failure with hypoxia; R65.21 Severe sepsis with septic shock; J15.0 Pneumonia due to Klebsiella pneumoniae; J15.6 Pneumonia due to other Gram-negative bacteria; J69.0 Pneumonitis due to inhalation of food and vomit; E44.1 Mild protein-calorie malnutrition; I47.1 Supraventricular tachycardia; Q21.1 Atrial septal defect; D64.9 Anemia, unspecified; E11.9 Type 2 diabetes mellitus without complications; E78.5 Hyperlipidemia, unspecified; E83.39 Other disorders of phosphorus metabolism; E83.51 Hypocalcemia; M54.17 Radiculopathy, lumbosacral region; N40.0 Benign prostatic hyperplasia without lower urinary tract symptoms; E87.6 Hypokalemia; F32.A Depression, unspecified; I07.1 Rheumatic tricuspid insufficiency; I11.0 Hypertensive heart disease with heart failure; I25.10 Atherosclerotic heart disease of native coronary artery without angina pectoris; Z20.822 Contact with and (suspected) exposure to COVID-19; I27.20 Pulmonary hypertension, unspecified; I48.91 Unspecified atrial fibrillation; I49.3 Ventricular premature depolarization; R29.6 Repeated falls; I70.0 Atherosclerosis of aorta; M19.90 Unspecified osteoarthritis, unspecified site; Z79.01 Long term (current) use of anticoagulants; Z79.899 Other long term (current) drug therapy; Z90.79 Acquired absence of other genital organ(s); Z87.440 Personal history of urinary (tract) infections; Z68.23 Body mass index [BMI] 23.0-23.9, adult
CPT/HCPCS: 36415; 36573; 36600; 71045; 71250; 74018; 76604; 80048; 80053; 80202; 80320; 81003; 82306; 82375; 82550; 82607; 82746; 82805; 82962; 83036; 83605; 83615; 83735; 83880; 83970; 84100; 84145; 84443; 84478; 84484; 85025; 87070; 87077; 87186; 87426; 93005; 93306; 94003; 94640; 94660; 99291; C1725; J0282; J0330; J0360; J0456; J0696; J1650; J1940; J2060; J2250; J2270; J2370; J2704; J3010; J3370; J3475; J3480; J3490; J7040; J7060; J7608; G0480